=== PATIENT | female | born 1940 | race Caucasian/White ===

== ENCOUNTER → 2016-05-17 | Outpatient (CLI) | payer OTHER ==
[~2016-05-17] MED LIST: ASCO10004 PO; CALCIUM PO; CHOL10002 PO; DEXL60CA PO; GARL10002 PO; MAGNESIUM PO; NAPR500T3 PO; OMEG-14 PO; RANI150T4 PO; TRAM50TA2 PO; VITA1CAP PO; ZINC50CA PO
[2016-05-17 15:56] LABS: HEMOGLOBIN 14.5 g/dL (11.7-16.4)
[2016-05-17 16:06] LABS: BLOOD UREA NITROGEN 18 mg/dL (7-18)
[2016-05-17 16:10] LABS: ASPARTATE AMINO TRANSFERASE 16 U/L (15-37)
== END | disposition home or self-care (01) ==
LOC: STAR 14:01
PROVIDERS: ATTEND Orthopaedic Surgery
DX: Z01.818 Encounter for other preprocedural examination (principal); M16.12 Unilateral primary osteoarthritis, left hip
CPT/HCPCS: 36415; 80053; 81001; 85025; 87081; 87086; 93005

== ENCOUNTER 2016-05-28 08:10 | Outpatient (CLI) | payer MEDICARE, OTHER ==
[~2016-05-28] VITALS: Ht 175.3 cm; Wt 83.0 kg
[~2016-05-28 08:10] MED LIST changes: +EPINEPHRINE 1 MG/ML, 1ML ONE; +KETOROLAC 60 MG/2 ML ONE; +ROPIvacaine/PF 0.2%, 20 ML ONE; +TRANEXAMIC ACID 100 MG/ML, 10ML ONE
== END 2016-05-28 09:15 ==
LOC: ORIP 08:10 → OR 08:10 → UNDOADMIN 08:10 → OR 09:15 → UNDODISIN 09:15 → EDSTATUS 11:00
PROVIDERS: ATTEND Orthopaedic Surgery
DX: Z02.9 Encounter for administrative examinations, unspecified (principal)
CPT/HCPCS: J0171; J1885; J2795

== ENCOUNTER 2016-06-11 08:07 | Inpatient (IN) | payer MEDICARE, OTHER ==
[~2016-06-11] VITALS: Ht 175.3 cm; Wt 92.7 kg
[~2016-06-11 08:07] MED LIST changes: +ROPIvacaine/PF 0.5%, 20 ML ONE; +SODIUM CHLORIDE 0.9% 50 ML ONE
[2016-06-11 08:32] VITALS: BP 119/74
[2016-06-11] MEDS ORDERED: LACTATED RINGERS 1,000 ML IV SCH (08:41)
[2016-06-11] MEDS ORDERED: GABA300C10 PO (09:29)
[2016-06-11] MEDS ORDERED: ONDA4TAB10 PO (09:29)
[2016-06-11] MEDS ORDERED: MIDAZOLAM 1 MG/ML, 2ML ONE (09:53)
[2016-06-11] MEDS ORDERED: EPHEDRINE 50 MG/ML, 1ML ONE (10:52)
[2016-06-11] MEDS ORDERED: CEFAZOLIN 1,000 MG ONE (10:52)
[2016-06-11] MEDS ORDERED: DEXAMETHASONE 4 MG/ML, 1ML ONE (10:52)
[2016-06-11] MEDS ORDERED: PROPOFOL 10 MG/ML, 50ML ONE (10:52)
[2016-06-11] MEDS ORDERED: ONDANSETRON 2MG/ML, 2ML ONE (10:52)
[2016-06-11] MEDS ORDERED: ACETAMINOPHEN 325 MG TABLET PO PRN (11:30)
[2016-06-11] MEDS ORDERED: METOCLOPRAMIDE 5 MG/ML, 2ML IV PRN (11:30)
[2016-06-11] MEDS ORDERED: OXYcodone 5 MG/5 ML ORAL.SOL UDC PO PRN (11:30)
[2016-06-11] MEDS ORDERED: morphine SULFATE 10 MG/ML, 1ML IV PRN (11:30)
[2016-06-11] MEDS ORDERED: DIPHENHYDRAMINE 50 MG CAPSULE PO PRN (12:30)
[2016-06-11] MEDS: OXYcodone IR 5MG TABLET PO SCH ×3 (12:30→21:00)
[2016-06-11] MEDS ORDERED: PROMETHAZINE 25 MG/ML, 1ML IM PRN (12:30)
[2016-06-11] MEDS ORDERED: ZOLPIDEM 5MG TABLET PO PRN (12:30)
[2016-06-11] MEDS ORDERED: SENNA/DOCUSATE TABLET PO PRN (12:30)
[2016-06-11] MEDS ORDERED: ALUMINUM/MAG/SIMETHICONE 30 ML UDC PO PRN (12:30)
[2016-06-11] MEDS ORDERED: MAGNESIUM HYDROXIDE 8%, 30ML UDC PO PRN (12:30)
[2016-06-11] MEDS ORDERED: OXYcodone IR 5MG TABLET PO PRN (12:30)
[2016-06-11] MEDS ORDERED: BISACODYL 10 MG SUPP PR PRN (12:30)
[2016-06-11] MEDS ORDERED: HYDROmorphone 1 MG/ML, 1ML IV PRN (12:30)
[2016-06-11] MEDS ORDERED: PROMETHAZINE 12.5 MG SUPP PR PRN (12:30)
[2016-06-11] MEDS: ACETAMINOPHEN 650 MG/20.3 ML UDC PO SCH ×3 (12:30→21:00)
[2016-06-11] MEDS ORDERED: ONDANSETRON 2MG/ML, 2ML IV PRN (12:30)
[2016-06-11] MEDS ORDERED: DIAZEPAM 5 MG TABLET PO PRN (12:30)
[2016-06-11] MEDS ORDERED: SCOPOLAMINE PATCH, 1.5MG PATCH.TD72 TD SCH (12:30)
[2016-06-11] MEDS ORDERED: ONDANSETRON 4 MG TABLET PO PRN (12:30)
[2016-06-11] MEDS ORDERED: TRANEXAMIC ACID 1,000 MG in SODIUM CHLORIDE 0.9% 100 ML IVPB ONE (12:40)
[2016-06-11] MEDS: TAMSULOSIN 0.4 MG CAP.ER.24H PO SCH (12:40)
[2016-06-11] MEDS ORDERED: OXYcodone 5 MG/5 ML ORAL.SOL UDC ONE (13:09)
[2016-06-11] MEDS: CEFAZOLIN PMX 2GM/100ML 100 ML IVPB SCH (17:12)
[2016-06-11] MEDS: D5%-0.45% NACL 1,000 ML IV SCH (17:15)
[2016-06-11] MEDS: ASPIRIN 81 MG TABLET EC PO SCH (18:20)
[2016-06-11 20:00] VITALS: BP 103/52
[2016-06-11] MEDS: PREGABALIN 75 MG CAPSULE PO SCH (20:45)
[2016-06-11] MEDS: DOCUSATE 100 MG CAPSULE PO SCH (20:45)
[2016-06-11] MEDS: HYDROcodone/APAP 10/325 MG TABLET PO PRN (20:53)
[2016-06-12 00:05] VITALS: BP 97/45
[2016-06-12] MEDS: ACETAMINOPHEN 650 MG/20.3 ML UDC PO SCH ×3 (01:00→10:10)
[2016-06-12] MEDS: OXYcodone IR 5MG TABLET PO SCH ×3 (01:00→09:00)
[2016-06-12] MEDS: CEFAZOLIN PMX 2GM/100ML 100 ML IVPB SCH (01:30)
[2016-06-12] MEDS: D5%-0.45% NACL 1,000 ML IV SCH ×3 (01:30→17:46)
[2016-06-12 04:00] VITALS: BP 96/52
[2016-06-12] MEDS: HYDROcodone/APAP 10/325 MG TABLET PO PRN (05:17)
[2016-06-12] MEDS: ASPIRIN 81 MG TABLET EC PO SCH ×2 (05:30→18:07)
[2016-06-12] MEDS ORDERED: LOPERAMIDE 2 MG CAPSULE PO PRN (06:30)
[2016-06-12] MEDS: PANTOPROZOLE 40MG TABLET PO SCH (07:46)
[2016-06-12 07:54] VITALS: BP 84/45
[2016-06-12] MEDS: TAMSULOSIN 0.4 MG CAP.ER.24H PO SCH (08:02)
[2016-06-12] MEDS: PREGABALIN 75 MG CAPSULE PO SCH ×2 (08:02→20:55)
[2016-06-12] MEDS: DOCUSATE 100 MG CAPSULE PO SCH ×2 (08:02→20:55)
[2016-06-12] MEDS: MULTIVITAMINS/MINERALS TABLET PO SCH (08:02)
[2016-06-12] MEDS ORDERED: SODIUM CHLORIDE 0.9% 1,000ML IVBOLUS ONE ×2 (08:30→19:30)
[2016-06-12] MEDS ORDERED: HYDROcodone/APAP 5/325 TABLET ONE (10:34)
[2016-06-12] MEDS: HYDROcodone/APAP 5/325 TABLET PO PRN ×3 (10:35→20:55)
[2016-06-12] MEDS: KETOROLAC 30 MG/1 ML IV SCH ×2 (13:27→20:55)
[2016-06-12 14:38] VITALS: BP 104/64
[2016-06-12 19:13] VITALS: BP 94/50
[2016-06-13] MEDS: D5%-0.45% NACL 1,000 ML IV SCH ×3 (01:29→09:59)
[2016-06-13 04:12] VITALS: BP 92/52
[2016-06-13] MEDS: HYDROcodone/APAP 5/325 TABLET PO PRN (05:25)
[2016-06-13] MEDS: ASPIRIN 81 MG TABLET EC PO SCH (05:25)
[2016-06-13] MEDS: KETOROLAC 30 MG/1 ML IV SCH ×2 (05:26→12:30)
[2016-06-13 07:19] VITALS: BP 92/45
[2016-06-13] MEDS: TAMSULOSIN 0.4 MG CAP.ER.24H PO SCH (09:00)
[2016-06-13] MEDS: PREGABALIN 75 MG CAPSULE PO SCH (09:58)
[2016-06-13] MEDS: PANTOPROZOLE 40MG TABLET PO SCH (09:58)
[2016-06-13] MEDS: MULTIVITAMINS/MINERALS TABLET PO SCH (09:58)
[2016-06-13] MEDS: DOCUSATE 100 MG CAPSULE PO SCH (09:58)
[2016-06-13 12:48] VITALS: BP 100/50
[2016-06-13] MEDS ORDERED: HYDR-3240 PO (13:21)
== END 2016-06-13 14:16 | disposition home or self-care (01) | DRG 470 ==
LOC: ORIP 08:07 → 4NOR 13:28 → DCLOUNGE 06-13 13:00
PROVIDERS: ADMIT Orthopaedic Surgery; ATTEND Orthopaedic Surgery
PROC: 0SRB02Z Replacement of Left Hip Joint with Metal on Polyethylene Synthetic Substitute, Open Approach (ICD-10-PCS; principal; 2016-06-11 11:00)
DX: M16.12 Unilateral primary osteoarthritis, left hip (principal); I95.9 Hypotension, unspecified; K21.9 Gastro-esophageal reflux disease without esophagitis; Z88.5 Allergy status to narcotic agent; Z88.1 Allergy status to other antibiotic agents; Z88.8 Allergy status to other drugs, medicaments and biological substances
CPT/HCPCS: 36415; 72170; 85014; 85018; 86850; 86900; C1713; J0171; J0690; J1100; J1885; J2250; J2405; J2704; J2795; C1776; J7030; J7120

== ENCOUNTER → 2016-11-08 | Outpatient (CLI) | payer MEDICARE, OTHER ==
[~2016-11-08] MED LIST changes: -DEXL60CA PO; +DEXL60CA2 PO; -EPINEPHRINE 1 MG/ML, 1ML ONE; +GABA300C10 PO; +HYDR-3240 PO; -KETOROLAC 60 MG/2 ML ONE; +OMNIPAQUE 350 MG/ML, 100ML BOTTLE ONE; +ONDA4TAB10 PO; -ROPIvacaine/PF 0.2%, 20 ML ONE; -ROPIvacaine/PF 0.5%, 20 ML ONE; -SODIUM CHLORIDE 0.9% 50 ML ONE; -TRANEXAMIC ACID 100 MG/ML, 10ML ONE
== END | disposition home or self-care (01) ==
LOC: CFH 12:09
DX: K57.90 Diverticulosis of intestine, part unspecified, without perforation or abscess without bleeding (principal); J47.9 Bronchiectasis, uncomplicated; N28.1 Cyst of kidney, acquired; K76.89 Other specified diseases of liver
CPT/HCPCS: 74177; Q9967

== ENCOUNTER → 2019-11-23 | Outpatient (CLI) | payer OTHER ==
[~2019-11-23] MED LIST changes: +APIX5TAB PO; +ASCO100018 PO; -ASCO10004 PO; +CARV6.252 PO; +DIGO125T85 PO; +FURO20TA3 PO; +LISI5TAB7 PO; +NAPR-685 PO; -NAPR500T3 PO; -OMNIPAQUE 350 MG/ML, 100ML BOTTLE ONE; +SPIR25TA5 PO
== END | disposition home or self-care (01) ==
LOC: WOUND 13:35
PROVIDERS: ATTEND Internal Medicine
DX: L97.812 Non-pressure chronic ulcer of other part of right lower leg with fat layer exposed (principal); S80.11XD Contusion of right lower leg, subsequent encounter; I87.8 Other specified disorders of veins; G89.29 Other chronic pain; I48.91 Unspecified atrial fibrillation; Z87.891 Personal history of nicotine dependence; Z79.01 Long term (current) use of anticoagulants; X58.XXXD Exposure to other specified factors, subsequent encounter
CPT/HCPCS: 99214

== ENCOUNTER → 2019-12-01 | Outpatient (CLI) | payer OTHER | END | disposition home or self-care (01) | LOC: WOUND 13:13 | PROVIDERS: ATTEND Nurse Practitioner Family | DX: L97.812 Non-pressure chronic ulcer of other part of right lower leg with fat layer exposed (principal); S80.11XD Contusion of right lower leg, subsequent encounter; I87.8 Other specified disorders of veins; G89.29 Other chronic pain; I48.91 Unspecified atrial fibrillation; Z87.891 Personal history of nicotine dependence; Z79.01 Long term (current) use of anticoagulants; X58.XXXD Exposure to other specified factors, subsequent encounter | CPT/HCPCS: 99213 ==

== ENCOUNTER → 2019-12-15 | Outpatient (CLI) | payer OTHER | END | disposition home or self-care (01) | LOC: WOUND 10:26 | PROVIDERS: ATTEND Nurse Practitioner Family | DX: L97.812 Non-pressure chronic ulcer of other part of right lower leg with fat layer exposed (principal); S80.11XD Contusion of right lower leg, subsequent encounter; I87.8 Other specified disorders of veins; G89.29 Other chronic pain; I48.91 Unspecified atrial fibrillation; Z87.891 Personal history of nicotine dependence; Z79.01 Long term (current) use of anticoagulants; X58.XXXD Exposure to other specified factors, subsequent encounter | CPT/HCPCS: 99213 ==

== ENCOUNTER → 2019-12-25 | Outpatient (CLI) | payer OTHER | END | disposition home or self-care (01) | LOC: CVU 12:37 | PROVIDERS: ATTEND Nurse Practitioner Family | DX: S80.11XA Contusion of right lower leg, initial encounter (principal); I83.93 Asymptomatic varicose veins of bilateral lower extremities; X58.XXXA Exposure to other specified factors, initial encounter; Y93.89 Activity, other specified; Y92.89 Other specified places as the place of occurrence of the external cause; Y99.8 Other external cause status | CPT/HCPCS: 93922; 93925; 93970 ==

== ENCOUNTER → 2019-12-29 | Outpatient (CLI) | payer OTHER | END | disposition home or self-care (01) | LOC: WOUND 10:27 | PROVIDERS: ATTEND Surgery | DX: L97.812 Non-pressure chronic ulcer of other part of right lower leg with fat layer exposed (principal); S80.11XD Contusion of right lower leg, subsequent encounter; I87.8 Other specified disorders of veins; G89.29 Other chronic pain; I48.91 Unspecified atrial fibrillation; Z87.891 Personal history of nicotine dependence; Z79.01 Long term (current) use of anticoagulants; X58.XXXD Exposure to other specified factors, subsequent encounter | CPT/HCPCS: 99213 ==

== ENCOUNTER → 2020-01-12 | Outpatient (CLI) | payer OTHER | END | disposition home or self-care (01) | LOC: WOUND 08:59 | PROVIDERS: ATTEND Internal Medicine Infectious Disease | DX: L97.812 Non-pressure chronic ulcer of other part of right lower leg with fat layer exposed (principal); S80.11XD Contusion of right lower leg, subsequent encounter; M25.571 Pain in right ankle and joints of right foot; I87.8 Other specified disorders of veins; G89.29 Other chronic pain; I48.91 Unspecified atrial fibrillation; Z87.891 Personal history of nicotine dependence; Z79.01 Long term (current) use of anticoagulants; W22.8XXD Striking against or struck by other objects, subsequent encounter | CPT/HCPCS: 99214 ==

== ENCOUNTER → 2020-01-19 | Outpatient (CLI) | payer OTHER | END | disposition home or self-care (01) | LOC: WOUND 09:59 | PROVIDERS: ATTEND Nurse Practitioner Family | DX: L97.812 Non-pressure chronic ulcer of other part of right lower leg with fat layer exposed (principal); S80.11XD Contusion of right lower leg, subsequent encounter; M25.571 Pain in right ankle and joints of right foot; I87.8 Other specified disorders of veins; G89.29 Other chronic pain; I48.91 Unspecified atrial fibrillation; Z87.891 Personal history of nicotine dependence; Z79.01 Long term (current) use of anticoagulants; W22.8XXD Striking against or struck by other objects, subsequent encounter | CPT/HCPCS: 99214 ==

== ENCOUNTER → 2020-01-26 | Outpatient (CLI) | payer OTHER | END | disposition home or self-care (01) | LOC: WOUND 10:47 | PROVIDERS: ATTEND Nurse Practitioner Family | DX: L97.812 Non-pressure chronic ulcer of other part of right lower leg with fat layer exposed (principal); S80.11XD Contusion of right lower leg, subsequent encounter; M25.571 Pain in right ankle and joints of right foot; I87.8 Other specified disorders of veins; G89.29 Other chronic pain; I48.91 Unspecified atrial fibrillation; Z87.891 Personal history of nicotine dependence; Z79.01 Long term (current) use of anticoagulants; W22.8XXD Striking against or struck by other objects, subsequent encounter | CPT/HCPCS: 99213 ==

== ENCOUNTER → 2020-07-01 | Outpatient (CLI) | payer OTHER, MEDICARE ==
[~2020-07-01] MED LIST changes: +HYDR-2214 PO; -HYDR-3240 PO
== END | disposition home or self-care (01) ==
LOC: CFH 10:55
PROVIDERS: ATTEND Obstetrics & Gynecology Gynecology
DX: Z12.31 Encounter for screening mammogram for malignant neoplasm of breast (principal)
CPT/HCPCS: 77067

== ENCOUNTER 2020-09-24 11:14 | Emergency (ER) | payer MEDICARE, OTHER ==
[~2020-09-24] VITALS: Ht 175.3 cm; Wt 75.0 kg
[~2020-09-24 11:14] MED LIST changes: +SOTA80TA18 PO
--- NOTE | 2020-09-24 12:27 | NUR ---
CT RESULTS BACK, PT FOR RECHECK.
[2020-09-24 12:46] VITALS: BP 124/68
== END 2020-09-24 12:49 | disposition home or self-care (01) ==
LOC: ED 12:18
DX: S00.03XA Contusion of scalp, initial encounter (principal); I10 Essential (primary) hypertension; I48.91 Unspecified atrial fibrillation; Z87.891 Personal history of nicotine dependence; W01.0XXA Fall on same level from slipping, tripping and stumbling without subsequent striking against object, initial encounter; Y93.89 Activity, other specified; Y92.009 Unspecified place in unspecified non-institutional (private) residence as the place of occurrence of the external cause; Y99.8 Other external cause status
CPT/HCPCS: 70450; 99284

== ENCOUNTER 2020-10-14 09:15 | Outpatient (CLI) | payer OTHER ==
[2020-10-14] MEDS ORDERED: OMNIPAQUE 350 MG/ML, 150 ML BOTTLE ONE (09:45)
== END 2020-10-14 23:59 | disposition home or self-care (01) ==
LOC: CFH 09:15 → RAD 23:59
PROVIDERS: ATTEND Internal Medicine Clinical Cardiac Electrophysiology
DX: J47.9 Bronchiectasis, uncomplicated (principal); I48.19 Other persistent atrial fibrillation
CPT/HCPCS: 71046; 75572; 82565; Q9967

== ENCOUNTER 2020-10-14 11:01 | Outpatient (CLI) | payer OTHER | END 2020-10-14 23:59 | disposition home or self-care (01) | LOC: STAR 11:01 | PROVIDERS: ATTEND Internal Medicine Clinical Cardiac Electrophysiology | DX: Z20.822 Contact with and (suspected) exposure to COVID-19 (principal) | CPT/HCPCS: U0003; U0005 ==

== ENCOUNTER 2020-10-18 10:54 | Observation (INO) | payer OTHER ==
[~2020-10-18] VITALS: Ht 175.3 cm; Wt 100.3 kg
[2020-10-18 11:59] VITALS: BP 121/62
[2020-10-18] MEDS ORDERED: ZINC220T2 PO (12:10)
[2020-10-18] MEDS ORDERED: DIGO125T85 PO (12:10)
[2020-10-18 12:12] LABS: BASOPHILS % (AUTO) 1 % (0-1); EOSINOPHILS % (AUTO) 2 % (1-7); LYMPHOCYTES % (AUTO) 18 % (22-44); MEAN CORPUSCULAR HEMOGLOBIN 31.2 pg (27.0-34.8); MEAN CORPUSCULAR HGB CONC 33.9 g/dL (32.4-35.8); MONOCYTES % (AUTO) 10 % (2-9); NEUTROPHILS % (AUTO) 69 % (42-75); PLATELET COUNT 224 x10^3/uL (130-400); RED BLOOD COUNT 4.63 x10^6/uL (3.82-5.3); RED CELL DISTRIBUTION WIDTH 13.2 % (9.6-15.2)
[2020-10-18 12:24] LABS: ALBUMIN 3.2 g/dL (3.4-5.0); ANION GAP 3 mmol/L (5-15); CHLORIDE 104 mmol/L (98-107); INTERNATIONAL NORMALIZED RATIO 1.01 (0.93-1.1); PROTHROMBIN TIME 10.8 Seconds (9.6-11.5)
[2020-10-18 12:27] LABS: ALANINE AMINOTRANSFERASE 14 U/L (12-78); ALKALINE PHOSPHATASE 82 U/L (45-117); BILIRUBIN,TOTAL 0.7 mg/dL (0.2-1.0); CREATININE 0.84 mg/dL (0.55-1.02); TOTAL PROTEIN 7.3 g/dL (6.4-8.2)
[2020-10-18] MEDS ORDERED: VASOPRESSIN 20 UNIT/ML, 1ML ONE (12:31)
[2020-10-18] MEDS ORDERED: PROPOFOL 10 MG/ML, 20ML ONE (12:31)
[2020-10-18] MEDS ORDERED: DEXAMETHASONE 4 MG/ML, 1ML ONE (12:31)
[2020-10-18] MEDS ORDERED: ROCURONIUM 10 MG/ML,10ML ONE (12:31)
[2020-10-18] MEDS ORDERED: EPHEDRINE 50 MG/ML, 1ML ONE ×2 (12:31→17:36)
[2020-10-18] MEDS ORDERED: FENTANYL PF 250 MCG/5ML ONE (12:32)
[2020-10-18] MEDS ORDERED: HEPARIN 1,000 UNITS/ML, 10ML ONE ×3 (13:45→14:14)
[2020-10-18] MEDS ORDERED: SODIUM CHLORIDE 0.9% 1,000 ML IV SCH (14:00)
[2020-10-18] MEDS ORDERED: FENTANYL PF 100 MCG/2ML ONE (14:33)
[2020-10-18] MEDS ORDERED: LIDOCAINE 1%, 20ML ONE (16:39)
[2020-10-18] MEDS ORDERED: PANTOPRAZOLE 20MG TABLET PO ONE (17:00)
[2020-10-18] MEDS ORDERED: ONDANSETRON 2MG/ML, 2ML IVPush PRN ×2 (17:00→17:30)
[2020-10-18] MEDS ORDERED: ALBUTEROL SULFATE 2.5 MG/3 ML NPPB PRN (17:30)
[2020-10-18] MEDS ORDERED: LABETALOL 5MG/ML, 20ML IV PRN (17:30)
[2020-10-18] MEDS ORDERED: ACETAMINOPHEN 325 MG TABLET PO PRN (17:30)
[2020-10-18] MEDS ORDERED: EPHEDRINE 50 MG/ML, 1ML IVPush PRN (17:30)
[2020-10-18] MEDS ORDERED: MEPERIDINE/PF 25MG/0.5ML IVPush PRN (17:30)
[2020-10-18] MEDS ORDERED: PROMETHAZINE 12.5 MG SUPP PR PRN (17:30)
[2020-10-18] MEDS ORDERED: MIDAZOLAM 1 MG/ML, 2ML IV PRN (17:30)
[2020-10-18] MEDS ORDERED: HYDROmorphone 1 MG/ML, 1ML INJ IVPush PRN (17:30)
[2020-10-18] MEDS ORDERED: DIPHENHYDRAMINE 50 MG/ML, 1ML IVPush PRN ×2 (17:30)
[2020-10-18] MEDS ORDERED: DIAZEPAM 5 MG/ML, 2ML IVPush PRN (17:30)
[2020-10-18] MEDS ORDERED: PROMETHAZINE 25 MG/ML, 1ML IVPush PRN (17:30)
[2020-10-18] MEDS ORDERED: OXYcodone 5 MG/5 ML ORAL.SOL UDC PO PRN (17:30)
[2020-10-18] MEDS ORDERED: hydrALAzine 20 MG/ML, 1ML IV PRN (17:30)
[2020-10-18] MEDS ORDERED: FENTANYL PF 100 MCG/2ML IV PRN (17:30)
[2020-10-18] MEDS ORDERED: LORazepam 2 MG/ML, 1ML IVPush PRN (17:30)
[2020-10-18] MEDS ORDERED: APIXABAN 5 MG TABLET ONE (17:59)
[2020-10-18] MEDS: APIXABAN 5 MG TABLET PO SCH ×2 (18:00→18:48)
[2020-10-18 19:40] VITALS: BP 83/48
[2020-10-18] MEDS ORDERED: ZOLPIDEM 5MG TABLET PO PRN (21:00)
[2020-10-18] MEDS: COLCHICINE 0.6 MG CAPSULE PO SCH (21:01)
[2020-10-18] MEDS: ACETAMINOPHEN 325 MG TABLET PO PRN (21:01)
[2020-10-18] MEDS: SOTALOL 120MG TABLET PO SCH (22:54)
[2020-10-19] VITALS (7 sets, daily range): BP systolic 67–100; BP diastolic 32–64
[2020-10-19] MEDS: ACETAMINOPHEN 325 MG TABLET PO PRN ×2 (04:33→04:36)
[2020-10-19] MEDS: COLCHICINE 0.6 MG CAPSULE PO SCH ×2 (08:33→19:50)
[2020-10-19] MEDS: APIXABAN 5 MG TABLET PO SCH ×2 (08:33→19:50)
[2020-10-19] MEDS: SOTALOL 120MG TABLET PO SCH ×2 (08:33→17:58)
[2020-10-20 01:52] VITALS: BP 96/59
[2020-10-20] MEDS: SOTALOL 120MG TABLET PO SCH (05:42)
[2020-10-20] MEDS ORDERED: PANTOPRAZOLE 20MG TABLET PO SCH (06:00)
[2020-10-20 06:50] VITALS: BP 94/57
[2020-10-20] MEDS: APIXABAN 5 MG TABLET PO SCH (08:35)
[2020-10-20] MEDS ORDERED: ACET325T26 PO (08:41)
[2020-10-20] MEDS ORDERED: SOTA120T14 PO (08:41)
[2020-10-20] MEDS ORDERED: PANT20TA4 PO (08:42)
[2020-10-20 13:44] VITALS: BP 93/57
== END 2020-10-20 14:36 | disposition home or self-care (01) ==
LOC: CACL 10:54 → ORIP 16:49 → 5SO 18:38
PROVIDERS: ADMIT Internal Medicine Clinical Cardiac Electrophysiology; ATTEND Internal Medicine Clinical Cardiac Electrophysiology
DX: I48.11 Longstanding persistent atrial fibrillation (principal); I42.9 Cardiomyopathy, unspecified; J47.9 Bronchiectasis, uncomplicated; I95.9 Hypotension, unspecified; I10 Essential (primary) hypertension; D68.69 Other thrombophilia; Z79.899 Other long term (current) drug therapy; Z87.891 Personal history of nicotine dependence; Z79.01 Long term (current) use of anticoagulants
CPT/HCPCS: 36415; 80053; 85025; 85347; 85610; 85730; 93005; 93306; 93312; 93321; 93325; 93356; 93613; 93656; 93657; 93662; C1730; C1732; C1759; C1766; C1769; C1894; G0378; J1100; J1644; J2704; J3010; J3490

== ENCOUNTER 2020-10-30 08:24 | Inpatient (IN) | payer OTHER ==
[~2020-10-30] VITALS: Ht 175.3 cm; Wt 78.8 kg
[~2020-10-30 08:24] MED LIST changes: +ACET325T26 PO; +PANT20TA4 PO; +SOTA120T14 PO; +ZINC220T2 PO
[2020-10-30 09:21] LABS: BASOPHILS % (AUTO) 1 % (0-1); EOSINOPHILS % (AUTO) 2 % (1-7); LYMPHOCYTES % (AUTO) 9 % (22-44); MEAN CORPUSCULAR HEMOGLOBIN 31.3 pg (27.0-34.8); MEAN PLATELET VOLUME 8.7 fL (7.4-10.4); MONOCYTES % (AUTO) 8 % (2-9); NEUTROPHILS % (AUTO) 80 % (42-75); PLATELET COUNT 254 x10^3/uL (130-400); RED CELL DISTRIBUTION WIDTH 14.4 % (9.6-15.2)
[2020-10-30 09:31] LABS: ALBUMIN 3.2 g/dL (3.4-5.0); ANION GAP 9 mmol/L (5-15); CALCIUM 9.1 mg/dL (8.5-10.1); CHLORIDE 105 mmol/L (98-107); CREATININE 0.76 mg/dL (0.55-1.02)
[2020-10-30 09:35] LABS: TROPONIN I < 0.015 ng/mL (0.000-0.045)
--- NOTE | 2020-10-30 09:48 | NUR ---
TASK RN: PT to room from lobby at this time via wheelchair.
--- NOTE | 2020-10-30 10:02 | NUR ---
US AT BEDSIDE. ERMD AT BEDSIDE FOR ASSESSMENT. PT NOT TO GET OUT OF BED D/T ANUERYSM IN RLE. PIV PLACED. PT CONNECTED TO MONITORING. CALL LIGHT IN REACH.
--- NOTE | 2020-10-30 10:13 | NUR ---
CARDIOLOGY PAGED @ 1012, ANSWER AT 1022. CARDIOLOGY TO CALL BACK WITHIN 15 MIN.
[2020-10-30] MEDS ORDERED: SODIUM CHLORIDE FLUSH 10ML SYR IVF ONE (10:30)
--- NOTE | 2020-10-30 10:32 | NUR ---
MT NOTE: VASCULAR CALL OUT 1026, ANSWER AT 1032. [facility] TO CALL BACK.
[2020-10-30] MEDS ORDERED: SODIUM CHLORIDE 0.9% 1,000 ML IV ONE (11:30)
[2020-10-30] MEDS ORDERED: SODIUM CHLORIDE FLUSH 10ML SYR IVF PRN (11:30)
--- NOTE | 2020-10-30 11:55 | NUR ---
PT PLACED ON BEDPAN TO VOID. VOIDED WITHOUT DIFFICULTY. COVID SWAB COLLECTED AND TAKEN TO LAB.
[2020-10-30] MEDS ORDERED: ACETAMINOPHEN 325 MG TABLET PO PRN ×2 (12:30→14:30)
[2020-10-30] MEDS ORDERED: HYDROcodone/APAP 5/325 TABLET PO PRN (12:30)
[2020-10-30] MEDS ORDERED: PROMETHAZINE 25 MG/ML, 1ML IM PRN (12:30)
[2020-10-30] MEDS ORDERED: POLYETHYLENE GLYCOL 17 GM PACKET PO PRN (12:30)
[2020-10-30] MEDS ORDERED: hydrALAzine 20 MG/ML, 1ML IVPush PRN (12:30)
[2020-10-30] MEDS ORDERED: morphine SULFATE 10 MG/ML, 1ML IVPush PRN (12:30)
[2020-10-30] MEDS ORDERED: BISACODYL 10 MG SUPP PR PRN (12:30)
[2020-10-30] MEDS ORDERED: ONDANSETRON ODT 4 MG PO PRN (12:30)
[2020-10-30] MEDS ORDERED: DOCUSATE 100 MG CAPSULE PO PRN (12:30)
[2020-10-30] MEDS ORDERED: ONDANSETRON 2MG/ML, 2ML IVPush PRN (12:30)
--- NOTE | 2020-10-30 12:35 | NUR ---
REPORT GIVEN TO COHN STOKES AND REKHA STOKES. PT RTG TO ROOM [id number]
[2020-10-30 13:06] VITALS: BP 127/69
[2020-10-30] MEDS ORDERED: THROMBIN 5,000 UNIT VIAL TP ONE (13:33)
[2020-10-30] MEDS: ASCORBIC ACID 500 MG TABLET PO SCH (14:17)
[2020-10-30] MEDS: SOTALOL 120MG TABLET PO SCH (17:55)
[2020-10-30] MEDS: CALCIUM CARBONATE 500 MG TAB.CHEW PO SCH (21:07)
[2020-10-30] MEDS: CHOLECALCIFEROL 1,000 UNIT TABLET PO SCH (21:08)
[2020-10-30] MEDS: MULTIVITS,STRESS FORMULA 1 TABLET PO SCH (21:08)
[2020-10-30 21:13] VITALS: BP 99/66
[2020-10-31 00:34] VITALS: BP 98/64
[2020-10-31] MEDS: SOTALOL 120MG TABLET PO SCH ×2 (05:46→18:21)
[2020-10-31] MEDS: PANTOPRAZOLE 20MG TABLET PO SCH (05:47)
[2020-10-31 06:31] LABS: BASOPHILS % (AUTO) 1 % (0-1); EOSINOPHILS % (AUTO) 4 % (1-7); LYMPHOCYTES % (AUTO) 12 % (22-44); MEAN CORPUSCULAR HEMOGLOBIN 31.4 pg (27.0-34.8); MEAN CORPUSCULAR HGB CONC 33.9 g/dL (32.4-35.8); MEAN PLATELET VOLUME 8.8 fL (7.4-10.4); MONOCYTES % (AUTO) 11 % (2-9); NEUTROPHILS % (AUTO) 72 % (42-75); PLATELET COUNT 238 x10^3/uL (130-400); RED BLOOD COUNT 3.69 x10^6/uL (3.82-5.3); RED CELL DISTRIBUTION WIDTH 14.6 % (9.6-15.2)
[2020-10-31 06:35] LABS: CHLORIDE 105 mmol/L (98-107)
[2020-10-31 06:53] LABS: ALANINE AMINOTRANSFERASE 13 U/L (12-78); ALBUMIN 2.7 g/dL (3.4-5.0); ALKALINE PHOSPHATASE 68 U/L (45-117); ANION GAP 6 mmol/L (5-15); BILIRUBIN,TOTAL 1.2 mg/dL (0.2-1.0); CALCIUM 8.4 mg/dL (8.5-10.1); CHOL/HDL RATIO 4.6; CHOLESTEROL, TOTAL 157 mg/dL (140-239); CREATININE 0.75 mg/dL (0.55-1.02); HDL CHOL % 22 % (28-40); HDL CHOLESTEROL (DIRECT) 34 mg/dL (40-60); LDL CHOLESTEROL,CALCULATED 100 mg/dL (54-169); LDL/HDL RATIO 2.9 (0.5-3.0); TOTAL PROTEIN 6.2 g/dL (6.4-8.2); TRIGLYCERIDES 116 mg/dL (50-200); VLDL CHOLESTEROL 23 mg/dL (0-25)
[2020-10-31 07:42] VITALS: BP 97/65
[2020-10-31] MEDS ORDERED: ZINC SULFATE 220 MG CAPSULE PO SCH (09:00)
[2020-10-31] MEDS: ZINC SULFATE 220 MG CAPSULE PO SCH (09:40)
[2020-10-31] MEDS: OMEGA-3/FISH OIL CAPSULE PO SCH (09:40)
[2020-10-31] MEDS: CALCIUM CARBONATE 500 MG TAB.CHEW PO SCH ×2 (09:41→20:32)
[2020-10-31] MEDS: MULTIVITS,STRESS FORMULA 1 TABLET PO SCH ×2 (09:41→20:32)
[2020-10-31] MEDS: MAGNESIUM OXIDE 400 MG TABLET PO SCH (09:41)
[2020-10-31] MEDS: ASCORBIC ACID 500 MG TABLET PO SCH (09:41)
[2020-10-31] MEDS: CHOLECALCIFEROL 1,000 UNIT TABLET PO SCH ×2 (09:41→20:32)
[2020-10-31 13:39] VITALS: BP 95/64
[2020-10-31 19:15] VITALS: BP 98/64
[2020-11-01 00:15] VITALS: BP 99/68
[2020-11-01] MEDS: PANTOPRAZOLE 20MG TABLET PO SCH (05:51)
[2020-11-01] MEDS: SOTALOL 120MG TABLET PO SCH (05:51)
[2020-11-01 06:49] VITALS: BP 96/64
[2020-11-01] MEDS: CALCIUM CARBONATE 500 MG TAB.CHEW PO SCH (08:02)
[2020-11-01] MEDS: MULTIVITS,STRESS FORMULA 1 TABLET PO SCH (08:03)
[2020-11-01] MEDS: MAGNESIUM OXIDE 400 MG TABLET PO SCH (08:03)
[2020-11-01] MEDS: CHOLECALCIFEROL 1,000 UNIT TABLET PO SCH (08:03)
[2020-11-01] MEDS: ASCORBIC ACID 500 MG TABLET PO SCH (08:03)
[2020-11-01] MEDS: OMEGA-3/FISH OIL CAPSULE PO SCH (08:03)
[2020-11-01] MEDS: ZINC SULFATE 220 MG CAPSULE PO SCH (08:03)
[2020-11-01 09:14] LABS: BASOPHILS % (AUTO) 1 % (0-1); EOSINOPHILS % (AUTO) 3 % (1-7); LYMPHOCYTES % (AUTO) 7 % (22-44); MEAN CORPUSCULAR HEMOGLOBIN 31.8 pg (27.0-34.8); MEAN CORPUSCULAR HGB CONC 34.3 g/dL (32.4-35.8); MEAN PLATELET VOLUME 8.3 fL (7.4-10.4); MONOCYTES % (AUTO) 9 % (2-9); NEUTROPHILS % (AUTO) 81 % (42-75); PLATELET COUNT 272 x10^3/uL (130-400); RED BLOOD COUNT 3.91 x10^6/uL (3.82-5.3); RED CELL DISTRIBUTION WIDTH 14.3 % (9.6-15.2)
[2020-11-01 13:13] VITALS: BP 97/64
== END 2020-11-01 16:00 | disposition home or self-care (01) | DRG 300 ==
LOC: ED 09:01 → EDIP 11:21 → 5SO 12:56
PROVIDERS: ADMIT Hospitalist; ATTEND Hospitalist
PROC: 3E053GC Introduction of Other Therapeutic Substance into Peripheral Artery, Percutaneous Approach (ICD-10-PCS; principal; 2020-10-30)
DX: I72.4 Aneurysm of artery of lower extremity (principal); D68.69 Other thrombophilia; I42.9 Cardiomyopathy, unspecified; I48.20 Chronic atrial fibrillation, unspecified; I10 Essential (primary) hypertension; I48.0 Paroxysmal atrial fibrillation; X58.XXXA Exposure to other specified factors, initial encounter; J47.9 Bronchiectasis, uncomplicated; Z96.642 Presence of left artificial hip joint; S30.1XXA Contusion of abdominal wall, initial encounter; Z20.822 Contact with and (suspected) exposure to COVID-19; Z82.49 Family history of ischemic heart disease and other diseases of the circulatory system; Z83.3 Family history of diabetes mellitus; Z85.828 Personal history of other malignant neoplasm of skin; Z87.891 Personal history of nicotine dependence; Z79.01 Long term (current) use of anticoagulants; Y93.89 Activity, other specified; Y92.89 Other specified places as the place of occurrence of the external cause; Y99.8 Other external cause status
CPT/HCPCS: 36415; 71045; 80048; 80053; 80061; 82040; 83036; 83735; 84100; 84443; 84484; 85025; 87635; 93005; 93926; 99285; G0378; J7030

== ENCOUNTER 2020-11-07 06:07 | Day surgery (SDC) | payer OTHER | END 2020-11-07 09:49 | disposition home or self-care (01) | LOC: CACL 06:07 | PROVIDERS: ATTEND Internal Medicine Clinical Cardiac Electrophysiology | DX: Z02.9 Encounter for administrative examinations, unspecified (principal) ==